=== PATIENT | male | born 1940 | race Caucasian/White ===

== ENCOUNTER 2017-07-15 12:54 | Inpatient (IN) | payer MEDICARE, MEDICAID ==
[~2017-07-15] VITALS: Ht 165.1 cm; Wt 96.2 kg
[~2017-07-15 12:54] MED LIST: AMI2 PO; ATOR40TA70 PO; BRIM10DR2 OP; FINA5TAB11 PO; FURO-152 PO; FURO40TA5 PO; METO-396 PO; QUIN40TA14 PO; TAMS0.4C31 PO; WARF5TAB73 PO
[2017-07-15] MEDS ORDERED: IPRATROPIUM BROMIDE (0.02%) 0.5MG/2.5ML NEB HHN STA (13:50)
[2017-07-15] MEDS ORDERED: ALBUTEROL (0.083%) 2.5MG/3ML NEB HHN STA (13:50)
[2017-07-15] MEDS ORDERED: SODIUM CHLORIDE 0.9% 1,000 ML IV ONE (13:50)
[2017-07-15] MEDS ORDERED: METOPROLOL TARTRATE 5MG/5ML VIAL IV ONE (14:00)
[2017-07-15] MEDS ORDERED: ASPIRIN 81MG TABLET PO ONE (14:00)
[2017-07-15 14:05] LABS: EOSINOPHILS % 2.1 % (0.0-5.0); HEMATOCRIT. 40.6 % (42.0-52.0); HEMOGLOBIN. 12.7 g/dL (14.0-18.0); LYMPHOCYTES % 9.9 % (20.0-50.0); MEAN CORPUSCULAR HEMOGLOBIN 23.5 pg (28.0-32.0); MEAN CORPUSCULAR VOLUME 75.5 fL (80.0-94.0); MEAN PLATELET VOLUME 8.8 fl (7.4-10.4); MONOCYTES % 10.8 % (2.0-8.0); NEUTROPHILS % 76.2 % (40.0-76.0); PLATELET 295 x1000/uL (130-400); RED BLOOD CELL COUNT 5.38 mill/uL (4.7-6.1); RED CELL DISTRIBUTION WIDTH 19.4 % (11.6-14.6)
[2017-07-15 14:16] LABS: INR 1.1; PARTIAL THROMBOPLASTIN TIME 23.9 sec (23.4-31.0); PROTHROMBIN TIME 11.4 sec (9.4-11.6)
[2017-07-15 14:20] LABS: CARBON DIOXIDE 29 mEq/L (21-32); CHLORIDE 100 mEq/L (98-107)
[2017-07-15 14:22] LABS: TROPONIN I 0.05 ng/mL (0.00-0.04)
[2017-07-15] MEDS ORDERED: FUROSEMIDE 40MG/4ML VIAL IVP SCH (14:30)
[2017-07-15] MEDS ORDERED: DILTIAZEM HCL 5MG/ML 5ML VIAL IV PRN (14:30)
[2017-07-15] MEDS ORDERED: FUROSEMIDE 40MG/4ML VIAL IVP ONE (15:15)
[2017-07-15] MEDS ORDERED: DIPHENHYDRAMINE 50MG/ML VIAL IV PRN (17:30)
[2017-07-15] MEDS ORDERED: ACETAMINOPHEN 325MG TABLET PO PRN (17:30)
[2017-07-15] MEDS ORDERED: NA PHOS,M-B/NA PHOS,DI-BA ENEMA 118ML PR PRN (17:30)
[2017-07-15] MEDS ORDERED: ONDANSETRON HCL 4MG/2ML VIAL IV PRN (17:30)
[2017-07-15] MEDS ORDERED: IPRATROPIUM/ALBUTEROL 0.5-3(2.5)MG/3ML NEB INH PRN (17:30)
[2017-07-15] MEDS ORDERED: HYDROCODONE/ACETAMINOPHEN 5/325MG TABLET PO PRN (17:30)
[2017-07-15] MEDS: FUROSEMIDE 40MG/4ML VIAL IVP SCH (18:00)
[2017-07-15] MEDS: POTASSIUM CHLORIDE 20MEQ TABLET SR PO SCH (18:00)
[2017-07-15 18:24] VITALS: BP 141/130
[2017-07-15] MEDS ORDERED: ENOXAPARIN 80MG/0.8ML SYR SUBCUT SCH ×2 (18:30→19:00)
[2017-07-15 18:31] VITALS: BP 162/98
[2017-07-15 18:35] VITALS: BP 162/98
[2017-07-15 20:00] VITALS: BP 166/114
[2017-07-15] MEDS: METOPROLOL TARTRATE 50MG TABLET PO SCH (20:19)
[2017-07-15] MEDS: LISINOPRIL 20MG TABLET PO SCH (20:19)
[2017-07-15] MEDS: ATORVASTATIN CALCIUM 40MG TABLET PO SCH (20:19)
[2017-07-15 22:03] VITALS: BP 161/97
[2017-07-15] MEDS: CLONIDINE 0.1MG TABLET PO PRN (22:15)
[2017-07-16] VITALS (18 sets, daily range): BP systolic 120–158; BP diastolic 67–110
[2017-07-16] MEDS: CLONIDINE 0.1MG TABLET PO PRN (04:38)
[2017-07-16 06:53] LABS: BASOPHILS % 1.3 % (0.0-2.0); EOSINOPHILS % 1.4 % (0.0-5.0); HEMATOCRIT. 34.6 % (42.0-52.0); LYMPHOCYTES % 11.8 % (20.0-50.0); MEAN CORPUSCULAR HEMOGLOBIN 23.7 pg (28.0-32.0); MEAN PLATELET VOLUME 9.2 fl (7.4-10.4); MONOCYTES % 10.5 % (2.0-8.0); PLATELET 250 x1000/uL (130-400); RED BLOOD CELL COUNT 4.62 mill/uL (4.7-6.1); RED CELL DISTRIBUTION WIDTH 19.6 % (11.6-14.6)
[2017-07-16 07:16] LABS: CARBON DIOXIDE 30 mEq/L (21-32); CHLORIDE 106 mEq/L (98-107); T4 FREE 1.26 ng/dL (0.76-1.46); TROPONIN I 0.05 ng/mL (0.00-0.04)
[2017-07-16] MEDS: ASPIRIN 81MG EC TABLET PO SCH (09:57)
[2017-07-16] MEDS: POTASSIUM CHLORIDE 20MEQ TABLET SR PO SCH (09:57)
[2017-07-16] MEDS: LISINOPRIL 20MG TABLET PO SCH ×2 (09:58→21:09)
[2017-07-16] MEDS: METOPROLOL TARTRATE 50MG TABLET PO SCH ×2 (09:58→21:09)
[2017-07-16] MEDS: FUROSEMIDE 40MG/4ML VIAL IVP SCH ×2 (09:59→17:37)
[2017-07-16] MEDS: ENOXAPARIN 80MG/0.8ML SYR SUBCUT SCH ×2 (10:00→21:09)
[2017-07-16] MEDS ORDERED: SODIUM CHLORIDE 0.9% 10ML VIAL ONE (10:00)
[2017-07-16] MEDS ORDERED: IOHEXOL-350 100 ML BOTTLE ONE (10:00)
[2017-07-16] MEDS ORDERED: AMIODARONE HCL 200 MG TABLET PO SCH (13:45)
[2017-07-16] MEDS: HYDRALAZINE HCL 25MG TABLET PO SCH ×2 (14:28→21:08)
[2017-07-16] MEDS: FINASTERIDE 5MG TABLET PO SCH (14:29)
[2017-07-16] MEDS: TAMSULOSIN HCL 0.4MG SR CAPSULE PO SCH (14:29)
[2017-07-16] MEDS ORDERED: ONDANSETRON HCL 4MG/2ML VIAL IV PRN (18:30)
[2017-07-16] MEDS ORDERED: ATORVASTATIN CALCIUM 40MG TABLET PO SCH (21:00)
[2017-07-16] MEDS: ATORVASTATIN CALCIUM 40MG TABLET PO SCH (21:08)
[2017-07-17] VITALS (12 sets, daily range): BP systolic 119–152; BP diastolic 66–109
[2017-07-17] MEDS: ZOLPIDEM TARTRATE 5MG TABLET PO PRN ×2 (00:20→22:14)
[2017-07-17] MEDS: HYDRALAZINE HCL 25MG TABLET PO SCH (06:00)
[2017-07-17] MEDS: LEVOTHYROXINE SODIUM 50MCG TABLET PO SCH (06:00)
[2017-07-17 06:02] LABS: EOSINOPHILS % 10.3 % (0.0-5.0); HEMATOCRIT. 35.4 % (42.0-52.0); HEMOGLOBIN. 11.1 g/dL (14.0-18.0); LYMPHOCYTES % 12.2 % (20.0-50.0); MEAN CORPUSCULAR HEMOGLOBIN 23.7 pg (28.0-32.0); MEAN CORPUSCULAR VOLUME 75.1 fL (80.0-94.0); MEAN PLATELET VOLUME 8.7 fl (7.4-10.4); MONOCYTES % 9.2 % (2.0-8.0); NEUTROPHILS % 67.3 % (40.0-76.0); PLATELET 244 x1000/uL (130-400); RED BLOOD CELL COUNT 4.71 mill/uL (4.7-6.1); RED CELL DISTRIBUTION WIDTH 19.5 % (11.6-14.6)
[2017-07-17] MEDS: ASPIRIN 81MG EC TABLET PO SCH (08:52)
[2017-07-17] MEDS: POTASSIUM CHLORIDE 20MEQ TABLET SR PO SCH (08:52)
[2017-07-17] MEDS: FUROSEMIDE 40MG/4ML VIAL IVP SCH ×2 (08:52→16:07)
[2017-07-17] MEDS: TAMSULOSIN HCL 0.4MG SR CAPSULE PO SCH (08:52)
[2017-07-17] MEDS: FINASTERIDE 5MG TABLET PO SCH (08:53)
[2017-07-17] MEDS: METOPROLOL TARTRATE 50MG TABLET PO SCH ×2 (08:53→20:05)
[2017-07-17] MEDS: LISINOPRIL 20MG TABLET PO SCH ×2 (08:53→20:05)
[2017-07-17] MEDS: ENOXAPARIN 80MG/0.8ML SYR SUBCUT SCH (08:56)
[2017-07-17] MEDS: DILTIAZEM HCL 30MG TABLET PO SCH ×2 (13:31→22:14)
[2017-07-17] MEDS: CLONIDINE 0.1MG TABLET PO PRN (15:30)
[2017-07-17] MEDS: APIXABAN 5 MG TABLET PO SCH (16:07)
[2017-07-17] MEDS: ATORVASTATIN CALCIUM 40MG TABLET PO SCH (20:05)
[2017-07-18] VITALS (8 sets, daily range): BP systolic 105–168; BP diastolic 52–103
[2017-07-18] MEDS: LEVOTHYROXINE SODIUM 50MCG TABLET PO SCH (05:52)
[2017-07-18] MEDS: DILTIAZEM HCL 30MG TABLET PO SCH (05:52)
[2017-07-18] MEDS: CLONIDINE 0.1MG TABLET PO PRN ×2 (05:52→22:53)
[2017-07-18] MEDS ORDERED: ALPRAZOLAM 0.25 MG TABLET PO SCH (07:15)
[2017-07-18] MEDS ORDERED: ALPRAZOLAM 0.25 MG TABLET PO PRN (07:15)
[2017-07-18 07:36] LABS: BASOPHILS % 0.8 % (0.0-2.0); EOSINOPHILS % 9.4 % (0.0-5.0); HEMATOCRIT. 38.6 % (42.0-52.0); HEMOGLOBIN. 12.1 g/dL (14.0-18.0); LYMPHOCYTES % 12.6 % (20.0-50.0); MEAN CORPUSCULAR HEMOGLOBIN 23.6 pg (28.0-32.0); MEAN CORPUSCULAR VOLUME 75.5 fL (80.0-94.0); MEAN PLATELET VOLUME 9.1 fl (7.4-10.4); MONOCYTES % 10.3 % (2.0-8.0); NEUTROPHILS % 66.9 % (40.0-76.0); PLATELET 266 x1000/uL (130-400); RED BLOOD CELL COUNT 5.12 mill/uL (4.7-6.1); RED CELL DISTRIBUTION WIDTH 19.1 % (11.6-14.6)
[2017-07-18 07:54] LABS: CARBON DIOXIDE 34 mEq/L (21-32); CHLORIDE 101 mEq/L (98-107)
[2017-07-18] MEDS: POTASSIUM CHLORIDE 20MEQ TABLET SR PO SCH (08:24)
[2017-07-18] MEDS: FUROSEMIDE 40MG/4ML VIAL IVP SCH ×2 (08:24→16:15)
[2017-07-18] MEDS: ASPIRIN 81MG EC TABLET PO SCH (08:24)
[2017-07-18] MEDS: APIXABAN 5 MG TABLET PO SCH ×2 (08:24→16:15)
[2017-07-18] MEDS: FINASTERIDE 5MG TABLET PO SCH (08:25)
[2017-07-18] MEDS: METOPROLOL TARTRATE 50MG TABLET PO SCH ×2 (08:25→20:45)
[2017-07-18] MEDS: LISINOPRIL 20MG TABLET PO SCH ×2 (08:25→20:45)
[2017-07-18] MEDS: DILTIAZEM HCL 60MG TABLET PO SCH ×2 (13:33→21:31)
[2017-07-18] MEDS: ATORVASTATIN CALCIUM 40MG TABLET PO SCH (20:30)
[2017-07-19] VITALS (7 sets, daily range): BP systolic 124–162; BP diastolic 81–118
[2017-07-19] MEDS: ZOLPIDEM TARTRATE 5MG TABLET PO PRN ×2 (01:01→21:27)
[2017-07-19] MEDS: DILTIAZEM HCL 60MG TABLET PO SCH ×3 (05:41→21:27)
[2017-07-19] MEDS: LEVOTHYROXINE SODIUM 50MCG TABLET PO SCH (06:41)
[2017-07-19 08:06] LABS: BASOPHILS % 1.2 % (0.0-2.0); EOSINOPHILS % 9.5 % (0.0-5.0); HEMATOCRIT. 34.6 % (42.0-52.0); LYMPHOCYTES % 14.3 % (20.0-50.0); MEAN CORPUSCULAR HEMOGLOBIN 23.8 pg (28.0-32.0); MEAN CORPUSCULAR VOLUME 74.8 fL (80.0-94.0); MEAN PLATELET VOLUME 8.9 fl (7.4-10.4); MONOCYTES % 9.9 % (2.0-8.0); NEUTROPHILS % 65.1 % (40.0-76.0); PLATELET 251 x1000/uL (130-400); RED BLOOD CELL COUNT 4.63 mill/uL (4.7-6.1); RED CELL DISTRIBUTION WIDTH 19.5 % (11.6-14.6)
[2017-07-19 08:44] LABS: CARBON DIOXIDE 33 mEq/L (21-32); CHLORIDE 101 mEq/L (98-107)
[2017-07-19] MEDS: POTASSIUM CHLORIDE 20MEQ TABLET SR PO SCH (09:00)
[2017-07-19] MEDS ORDERED: POTASSIUM CHLORIDE 20MEQ TABLET SR PO SCH (10:15)
[2017-07-19] MEDS: FUROSEMIDE 40MG/4ML VIAL IVP SCH ×2 (10:37→16:59)
[2017-07-19] MEDS: ASPIRIN 81MG EC TABLET PO SCH (10:37)
[2017-07-19] MEDS: METOPROLOL TARTRATE 50MG TABLET PO SCH ×2 (10:38→20:22)
[2017-07-19] MEDS: LISINOPRIL 20MG TABLET PO SCH ×2 (10:39→20:23)
[2017-07-19] MEDS: FINASTERIDE 5MG TABLET PO SCH (10:39)
[2017-07-19] MEDS: APIXABAN 5 MG TABLET PO SCH ×2 (10:40→16:58)
[2017-07-19] MEDS: ATORVASTATIN CALCIUM 40MG TABLET PO SCH (20:23)
[2017-07-20] VITALS: BP 144/91
[2017-07-20 04:25] VITALS: BP 148/99
[2017-07-20] MEDS: DILTIAZEM HCL 60MG TABLET PO SCH ×2 (05:15→13:47)
[2017-07-20 06:41] LABS: BASOPHILS % 1.2 % (0.0-2.0); EOSINOPHILS % 8.2 % (0.0-5.0); HEMATOCRIT. 36.3 % (42.0-52.0); HEMOGLOBIN. 11.6 g/dL (14.0-18.0); LYMPHOCYTES % 15.8 % (20.0-50.0); MEAN CORPUSCULAR HEMOGLOBIN 23.9 pg (28.0-32.0); MEAN CORPUSCULAR VOLUME 75.1 fL (80.0-94.0); MEAN PLATELET VOLUME 8.8 fl (7.4-10.4); NEUTROPHILS % 64.8 % (40.0-76.0); PLATELET 275 x1000/uL (130-400); RED BLOOD CELL COUNT 4.84 mill/uL (4.7-6.1); RED CELL DISTRIBUTION WIDTH 19.4 % (11.6-14.6)
[2017-07-20 07:39] LABS: CARBON DIOXIDE 32 mEq/L (21-32); CHLORIDE 101 mEq/L (98-107)
[2017-07-20 08:00] VITALS: BP 134/89
[2017-07-20] MEDS: POTASSIUM CHLORIDE 20MEQ TABLET SR PO SCH (09:00)
[2017-07-20] MEDS: APIXABAN 5 MG TABLET PO SCH ×2 (10:25→17:14)
[2017-07-20] MEDS: ASPIRIN 81MG EC TABLET PO SCH (10:25)
[2017-07-20] MEDS: LEVOTHYROXINE SODIUM 50MCG TABLET PO SCH (10:25)
[2017-07-20] MEDS: FUROSEMIDE 40MG/4ML VIAL IVP SCH ×2 (10:25→17:14)
[2017-07-20] MEDS: FINASTERIDE 5MG TABLET PO SCH (10:27)
[2017-07-20] MEDS: METOPROLOL TARTRATE 50MG TABLET PO SCH (10:27)
[2017-07-20] MEDS: LISINOPRIL 20MG TABLET PO SCH (10:28)
[2017-07-20 12:00] VITALS: BP 140/89
[2017-07-20 16:00] VITALS: BP 139/85
[2017-07-20 17:25] VITALS: BP 139/85
== END 2017-07-20 18:15 | disposition home health service (06) | DRG 308 ==
LOC: ER 13:47 → 3WST 15:12 → EDBEDREQ 15:15 → ENRESERV 15:37 → 7WST 07-18 22:31
PROVIDERS: ADMIT Hospitalist; ATTEND Hospitalist
DX: I48.1 Persistent atrial fibrillation (principal); I50.43 Acute on chronic combined systolic (congestive) and diastolic (congestive) heart failure; E87.5 Hyperkalemia; I08.1 Rheumatic disorders of both mitral and tricuspid valves; I11.0 Hypertensive heart disease with heart failure; E03.9 Hypothyroidism, unspecified; E78.5 Hyperlipidemia, unspecified; E87.6 Hypokalemia; F41.9 Anxiety disorder, unspecified; G47.00 Insomnia, unspecified; I25.10 Atherosclerotic heart disease of native coronary artery without angina pectoris; J45.909 Unspecified asthma, uncomplicated; N40.0 Benign prostatic hyperplasia without lower urinary tract symptoms; Z79.01 Long term (current) use of anticoagulants; I25.2 Old myocardial infarction; Z79.899 Other long term (current) drug therapy
CPT/HCPCS: 36415; 71010; 71275; 80048; 80053; 83605; 83735; 83880; 84439; 84443; 84484; 85025; 85379; 85610; 85730; 87040; 93005; 93306; 93970; 94640; 94664; 96361; 96374; 97162; 99285; A4216; J1650; J1940; J3490; J7030; J7611; Q9967